=== PATIENT | male | born 1955 | race Caucasian/White ===

== ENCOUNTER 2021-01-29 07:57 | Day surgery (SDC) | payer MEDICARE, MEDICAID ==
[2021-01-22 16:28] LABS: BASOPHILS # (AUTO) 0.1 X10'3 (0-0.2); BASOPHILS % (AUTO) 1.4 % (0-1); EOSINOPHILS # (AUTO) 0.2 X10'3 (0-0.9); LYMPHOCYTES # (AUTO) 1.9 X10'3 (1.1-4.8); LYMPHOCYTES % (AUTO) 28.4 % (21-51); MEAN CORPUSCULAR HGB CONC 33.2 g/dL (33.0-36.5); MEAN CORPUSCULAR VOLUME 96.3 FL (78-98); MEAN PLATELET VOLUME 8.4 FL (7.4-10.4); MONOCYTES # (AUTO) 0.5 X10'3 (0-0.9); MONOCYTES % (AUTO) 7.2 % (2-12); NEUTROPHILS # (AUTO) 4.1 X10'3 (1.8-7.7); PRE OP HEMATOCRIT 46.3 % (42.0-52.0); PRE OP HEMOGLOBIN 15.4 g/dL (14.0-17.9); PRE OP PLATELET COUNT 191 X10'3 (140-440); RED BLOOD COUNT 4.81 X10'6 (4.70-6.10); RED CELL DISTRIBUTION WIDTH 13.2 % (11.5-14.5)
[2021-01-22 16:41] LABS: UA COLLECTION TYPE CLN CATCH MIDSTREAM
[2021-01-22 16:42] LABS: CLARITY,URINE CLOUDY (Clear); COLOR,URINE YELLOW (Yellow)
[2021-01-22 16:43] LABS: GLUCOSE, URINE NEGATIVE (Neg); KETONES,URINE NEGATIVE (Neg); LEUKOCYTE ESTERASE ,URINE NEGATIVE (Neg); NITRITES, URINE NEGATIVE (Neg); OCCULT BLOOD,URINE NEGATIVE (Neg); PROTEIN,URINE NEGATIVE (Neg); UROBILINOGEN,URINE 0.2 E.U/dL (0.2-1.0)
[2021-01-22 16:44] LABS: AMORPHOUS URATES 3+; BACTERIA,URINE NONE SEEN /HPF (Neg); MUCUS STRANDS NONE SEEN /LPF (Neg); RBC,URINE NONE SEEN /HPF (0-2); SQUAMOUS EPITHELIAL CELL,UR FEW /LPF (FEW); WBC,URINE NONE SEEN /HPF (0-4)
[2021-01-22 16:44] LABS: ALBUMIN/GLOBULIN RATIO 1.3 (1.1-1.5); ALKALINE PHOSPHATASE 78 IU/L (46-116); BLOOD UREA NITROGEN 14 MG/DL (7-18); BUN/CREATININE RATIO 12.6 (5.4-32.0); CALCIUM 8.4 MG/DL (8.5-10.1); CHLORIDE 107 MMOL/L (99-107); CREATININE 1.11 MG/DL (0.60-1.10); PRE OP ALT 28 U/L (30-65); PRE OP ANION GAP 11 (8-16); PRE OP AST 15 U/L (10-37); PRE OP BILIRUB, TOTAL 0.4 MG/DL (0.0-1.0); PRE OP GLUCOSE 91 MG/DL (70-104); PRE OP POTASSIUM 4.1 MMOL/L (3.4-5.1); PRE OP SODIUM 142 MMOL/L (135-145); TOTAL CARBON DIOXIDE 24.2 MMOL/L (24-32); TOTAL PROTEIN 7.1 G/DL (6.4-8.2); eGFR 66 ML/MIN
[~2021-01-29] VITALS: Ht 170.2 cm; Wt 75.2 kg
[2021-01-29] VITALS (7 sets, daily range): BP systolic 120–143; BP diastolic 71–83
[~2021-01-29 07:57] MED LIST: CITA20TA28 PO; FLO0.4C PO; HYDROmorphone/PF 0.2 MG/ML SYRINGE IV PRN; MELO-102 PO; TOP100T PO; acetaminophen 1,000mg/100ml IV 100 ML IV PRN; famotidine 20mg tablet PO ONE; hydrALAZINE 20mg/ml inj. IV PRN; labetalol 20mg/4ml (5mg/ml) syringe IV PRN; meperidine/PF 25mg/ml syringe IV PRN; morphine 2 MG/ML inj. syringe IV PRN; morphine 4 MG/ML inj SYRINge IV PRN; ondansetron/PF 4mg/2ml inj IV PRN; proCHLORperazine 10 MG/2 ml inj IV PRN; ringers solution, lacted 1,000 ML IV SCH
[2021-01-29] MEDS ORDERED: BUPIVAcaine/PF 2.5mg/ml (0.25%) 10ml vial ONE (08:12)
[2021-01-29] MEDS ORDERED: bacitracin 15gm ointment TP ONE (08:12)
[2021-01-29] MEDS ORDERED: cefazolin/dext.iso 2gm/100ml 100 ML IV ONE (08:40)
[2021-01-29] MEDS ORDERED: sevoflurane 250ml liquid IH ONE (09:05)
[2021-01-29] MEDS ORDERED: fentaNYL/PF 50MCG/1 ML 2ML syringe ONE (09:07)
[2021-01-29] MEDS ORDERED: midazolam 1 mg/ML 2ml injection ONE (09:10)
[2021-01-29] MEDS ORDERED: LIDOcaine 2% (20mg/ml) 5ml vial ONE (09:21)
[2021-01-29] MEDS ORDERED: ondansetron/PF 4mg/2ml inj ONE (09:21)
[2021-01-29] MEDS ORDERED: propofol inj 20 ML IV ONE (09:21)
[2021-01-29] MEDS ORDERED: dexamethasone sod phosphate 4mg/ml inj. ONE (09:21)
[2021-01-29] MEDS ORDERED: ceFAZolin 1000mg inj ONE ×2 (09:27)
--- NOTE | 2021-01-29 10:06 | NUR ---
PT AWAKE ALERT VSS NO DISTRESS DENIES PAIN PALOMINO, NASAL TRUMP IN PLACED PULLED IMMED. IV TO RIGHT ARM CDI, DRESSING TO LEFT FOOT WITH BOOT IN PLACE Addendum: 01/29/21 at 1046 by Nicole Elise RN Amended: Links added.
--- NOTE | 2021-01-29 10:49 | NUR ---
PT MORE AWAKE VSS NO DISTRESS DENIES PAIN, ROSA ISELA PO'S MEETS CRITERIA TO DC HOME. Addendum: 01/29/21 at 1049 by Nicole Elise RN Amended: Links added.
== END 2021-01-29 11:06 | disposition home or self-care (01) ==
LOC: PAS 07:57
PROVIDERS: ATTEND Podiatrist Foot & Ankle Surgery
DX: M19.072 Primary osteoarthritis, left ankle and foot (principal); M21.6X2 Other acquired deformities of left foot; M20.42 Other hammer toe(s) (acquired), left foot; I69.354 Hemiplegia and hemiparesis following cerebral infarction affecting left non-dominant side; F32.9 Major depressive disorder, single episode, unspecified; F41.9 Anxiety disorder, unspecified; N40.0 Benign prostatic hyperplasia without lower urinary tract symptoms; F12.90 Cannabis use, unspecified, uncomplicated; Z79.899 Other long term (current) drug therapy; Z96.611 Presence of right artificial shoulder joint; Z98.890 Other specified postprocedural states; Z20.822 Contact with and (suspected) exposure to COVID-19; Z82.49 Family history of ischemic heart disease and other diseases of the circulatory system
CPT/HCPCS: 28825; 36415; 80053; 81001; 82948; 85025; 93005; A6222; J0690; J1100; J2001; J2250; J2405; J2704; J3010; J3490; J7120; U0003; U0005; Z7506; Z7508; 88305; 88311; A4618; A6449; A7000